=== PATIENT | female | born 1935 | race Caucasian/White ===

== ENCOUNTER 2020-05-14 09:32 | Inpatient (IN) | payer MEDICARE ==
[~2020-05-14] VITALS: Ht 165.1 cm; Wt 92.2 kg
--- NOTE | 2020-05-14 09:45 | PHYS DOC ---
Past Medical History Past Medical History: COPD Smoking Status: Current Every Day Smoker General Adult EDM: Chief Complaint: CHEST PAIN HPI: HPI: Patient is a 85 year old female who presents with a 5-day history of pleuritic left-sided thoracic pain radiating to her chest. Pain is worse with deep breaths. Pain is moderate and severity at rest but severe with deep breaths. Patient has had chronic cough that is been worse over the last 5 days. Patient had a cyst removed on her back on Tuesday and symptoms began around that time. She denies any fever or COVID-19 exposures Review of Systems: Review of Systems: Constitutional: Denies fever or chills. [] Eyes: Denies change in visual acuity. [] HENT: Denies nasal congestion or sore throat. [] Respiratory: Complains of chronic cough and also has shortness of breath Cardiovascular: Complains of chest pain but no edema GI: Denies abdominal pain, nausea, vomiting, bloody stools or diarrhea. [] : Denies dysuria. [] Musculoskeletal: Complains of thoracic back pain Integument: Denies rash. [] Neurologic: Denies headache, focal weakness or sensory changes. [] Endocrine: Denies polyuria or polydipsia. [] Lymphatic: Denies swollen glands. [] Psychiatric: Denies depression or anxiety. [] Heart Score: HEART Score for Chest Pain: HEART Score for Chest Pain Response (Comments) Value History Slighlty/Non-Suspicious 0 ECG Nonspecific Repolarizatio 1 Age > 65 2 Risk Factors 1 or 2 Risk Factors 1 Total 4 Risk Factors: Risk Factors: DM, Current or recent (<one month) smoker, HTN, HLP, family history of CAD, obesity. Risk Scores: Score 0 - 3: 2.5% MACE over next 6 weeks - Discharge Home Score 4 - 6: 20.3% MACE over next 6 weeks - Admit for Clinical Observation Score 7 - 10: 72.7% MACE over next 6 weeks - Early Invasive Strategies Physical Exam: PE: Constitutional: Well developed, well nourished, no acute distress, non-toxic appearance. [] HENT: Normocephalic, atraumatic, bilateral external ears normal, no trismus, nose normal. [] Eyes: PERRLA, EOMI, conjunctiva normal, no discharge. [] Neck: Normal range of motion, no tenderness, supple, no stridor. [] Cardiovascular:Heart rate regular rhythm, peripheral pulse intact, cap refill brisk Lungs & Thorax: Diminished breath sounds bilaterally crackles bilaterally Abdomen: , soft, no tenderness, no masses, no pulsatile masses. [] Skin: Warm, dry, no erythema, no rash. [] Back: No tenderness, no CVA tenderness. [] Extremities: No tenderness, no cyanosis, no clubbing, ROM intact, no edema. [] Neurologic: Alert and oriented X 3, normal motor function, normal sensory function, no focal deficits noted. [] Psychologic: Affect normal, judgement normal, mood normal. [] Current Patient Data: Labs: Laboratory Tests Test 05/14/20 09:55 05/14/20 10:34 05/14/20 12:10 White Blood Count 8.1 x10^3/uL Red Blood Count 4.89 x10^6/uL Hemoglobin 15.2 g/dL Hematocrit 44.0 % Mean Corpuscular Volume 90 fL Mean Corpuscular Hemoglobin 31 pg Mean Corpuscular Hemoglobin Concent 34 g/dL Red Cell Distribution Width 14.6 % Platelet Count 224 x10^3/uL Neutrophils (%) (Auto) 78 % Lymphocytes (%) (Auto) 12 % Monocytes (%) (Auto) 7 % Eosinophils (%) (Auto) 3 % Basophils (%) (Auto) 1 % Neutrophils # (Auto) 6.3 x10^3/uL Lymphocytes # (Auto) 0.9 x10^3/uL Monocytes # (Auto) 0.6 x10^3/uL Eosinophils # (Auto) 0.2 x10^3/uL Basophils # (Auto) 0.0 x10^3/uL Prothrombin Time 13.1 SEC Prothromb Time International Ratio 1.0 D-Dimer (Karon) 1.94 ug/mlFEU Sodium Level 138 mmol/L Potassium Level 3.7 mmol/L Chloride Level 101 mmol/L Carbon Dioxide Level 31 mmol/L Anion Gap 6 Blood Urea Nitrogen 17 mg/dL Creatinine 0.8 mg/dL Estimated GFR (Cockcroft-Gault) 67.8 BUN/Creatinine Ratio 21 Glucose Level 104 mg/dL Calcium Level 9.1 mg/dL Magnesium Level 1.9 mg/dL Total Bilirubin 0.5 mg/dL Aspartate Amino Transf (AST/SGOT) 20 U/L Alanine Aminotransferase (ALT/SGPT) 22 U/L Alkaline Phosphatase 70 U/L Troponin I Quantitative < 0.017 ng/mL < 0.017 ng/mL CJ-Kha-N-Type Natriuretic Peptide 363 pg/mL Total Protein 6.8 g/dL Albumin 3.2 g/dL Albumin/Globulin Ratio 0.9 Lipase 62 U/L Current Medications Medications (Trade) Dose Ordered Sig/Violeta Route PRN Reason Start Time Stop Time Status Last Admin Dose Admin Ceftriaxone Sodium (Rocephin) 1 gm 1X ONCE IVP 05/14/20 11:15 05/14/20 11:19 DC 05/14/20 11:27 Azithromycin 250 ml @ 250 mls/hr 1X ONCE IV 05/14/20 11:30 05/14/20 12:29 DC 05/14/20 11:28 Ondansetron HCl (Zofran) 4 mg PRN Q8HRS PRN IV NAUSEA/VOMITING 05/14/20 11:30 05/15/20 11:29 Vital Signs: Vital Signs Date Time Temp Pulse Resp B/P (MAP) Pulse Ox O2 Delivery O2 Flow Rate FiO2 05/14/20 11:41 74 150/79 (102) 93 Nasal Cannula 2.0 05/14/20 11:11 78 142/77 (98) 95 Nasal Cannula 2.0 05/14/20 10:11 72 154/73 (100) 94 Nasal Cannula 2.0 05/14/20 09:40 98.5 71 20 147/86 (106) 92 Room Air 98.5 EKG: EKG: [] EKG interpreted by me normal sinus rhythm with a rate of 71 left axis deviation,, nonspecific ST changes Radiology/Procedures: Radiology/Procedures: [][facility] [address] [place] [address] IMAGING REPORT Signed PATIENT: WILLIAN NAYLORCOUNT: [id number] : 1935 LOCATION: ER AGE: 85 SEX: F EXAM STATUS: PRE ER ORD. PHYSICIAN: SYLVESTER YATES MD REASON: chest pain PROCEDURE: PORTABLE CHEST 1V PORTABLE CHEST 1V Clinical indications: Chest pain. COMPARISON: December 03, 2014. FINDINGS: There is infiltrate or atelectasis within both lung bases more so on the left side. The medial aspect of the left hemidiaphragm is not well-visualized today. No pleural effusion or pulmonary edema or pneumothorax is seen. The heart size is mildly prominent but stable. Mediastinum and pulmonary vasculature and both mary are unchanged. IMPRESSION: Bibasilar lung infiltrates or atelectasis more prominent on the left side. Electronically signed by: Justa Ojeda MD (05/14/2020 10:47 AM) [id number] DICTATED and SIGNED BY: JUSTA OJEDA MD DATE: 05/14/20 1047 Course & Med Decision Making: Course & Med Decision Making Pertinent Labs and Imaging studies reviewed. (See chart for details) [] 85-year-old female presents with left-sided chest pain. The patient has pneumonia on x-ray and will be treated for community-acquired pneumonia. Patient's oxygen level is in the upper 80s on arrival and to baseline is about 93%. Patient improves with couple liters of oxygen via nasal cannula in the ER. Patient will be sent swabbed for coronavirus as well. Patient's d-dimer came back after the disposition was made although I think pulmonary embolism is less likely and most likely her symptoms are due to pneumonia. Discussed the case with Dr. west who will admit the patient. Smita Disclaimer: Smita Disclaimer: This electronic medical record was generated, in whole or in part, using a voice recognition dictation system. Departure Departure Impression: Primary Impression: Pneumonia Additional Impression: Left-sided chest pain Disposition: ADMITTED INPATIENT Admitting Physician: Vanessa West Condition: STABLE Referrals: RODOLFO BUCKNER (PCP) Justicifation of Admission Dx: Justifications for Admission: Justification of Admission Dx: Yes Comminuty Aquired Pneumonia: Hypoxemia SYLVESTER YATES MD May 14, 2020 09:45
[2020-05-14 10:13] LABS: BASO % 1 % (0-3); EOS # 0.2 x10^3/uL (0.0-0.7); EOS % 3 % (0-3); HEMOGLOBIN 15.2 g/dL (12.0-15.5); LYMPH # 0.9 x10^3/uL (1.0-4.8); LYMPH % 12 % (24-48); MEAN CORPUSCULAR HEMOGLOBIN 31 pg (25-35); MEAN CORPUSCULAR HGB CONC 34 g/dL (31-37); MEAN CORPUSCULAR VOLUME 90 fL (79-100); MONO # 0.6 x10^3/uL (0.0-1.1); MONO % 7 % (0-9); NEUT # 6.3 x10^3/uL (1.8-7.7); NEUT % 78 % (31-73); PLATELET COUNT 224 x10^3/uL (140-400); RED BLOOD COUNT 4.89 x10^6/uL (3.50-5.40); RED CELL DISTRIBUTION WIDTH 14.6 % (11.5-14.5); WHITE BLOOD COUNT 8.1 x10^3/uL (4.0-11.0)
--- NOTE | 2020-05-14 10:50 | RAD ---
PORTABLE CHEST 1V Clinical indications: Chest pain. COMPARISON: December 03, 2014. FINDINGS: There is infiltrate or atelectasis within both lung bases more so on the left side. The medial aspect of the left hemidiaphragm is not well-visualized today. No pleural effusion or pulmonary edema or pneumothorax is seen. The heart size is mildly prominent but stable. Mediastinum and pulmonary vasculature and both mary are unchanged. IMPRESSION: Bibasilar lung infiltrates or atelectasis more prominent on the left side. Electronically signed by: Gino Ojeda MD (05/14/2020 10:47 AM) [id number]
[2020-05-14 10:56] LABS: CALCIUM 9.1 mg/dL (8.5-10.1); CREATININE 0.8 mg/dL (0.6-1.0); GFR 67.8; POTASSIUM 3.7 mmol/L (3.5-5.1)
[2020-05-14 11:02] LABS: ALBUMIN 3.2 g/dL (3.4-5.0); ALBUMIN/GLOBULIN RATIO 0.9 (1.0-1.7); MAGNESIUM 1.9 mg/dL (1.8-2.4); TOTAL BILIRUBIN 0.5 mg/dL (0.2-1.0); TOTAL PROTEIN 6.8 g/dL (6.4-8.2)
[2020-05-14 11:12] LABS: PROTHROMBIN TIME PATIENT 13.1 SEC (11.7-14.0)
[2020-05-14] MEDS ORDERED: cefTRIAXone IV Push 1 GM VIAL. IVP ONE (11:15)
[2020-05-14 11:27] LABS: D-DIMER 1.94 ug/mlFEU (0.00-0.50)
[2020-05-14] MEDS ORDERED: ONDANSETRON PF 4 MG/2 ML VIAL. IV PRN (11:30)
[2020-05-14] MEDS ORDERED: AZITHRMYCN 500MG IVPB FOR OMNI 250 ML IV ONE (11:30)
[2020-05-14 12:30] VITALS: BP 142/75
[2020-05-14] MEDS ORDERED: CALC600T6 PO (13:48)
[2020-05-14] MEDS ORDERED: BACL10TA PO (13:48)
[2020-05-14] MEDS ORDERED: MULT-766 PO (13:48)
[2020-05-14] MEDS ORDERED: TRIA1CAP3 PO (13:48)
[2020-05-14] MEDS ORDERED: LOSA-73 PO (13:48)
[2020-05-14] MEDS ORDERED: DILT300C24 PO (13:48)
[2020-05-14] MEDS ORDERED: GABA400C7 PO (13:48)
[2020-05-14 14:44] VITALS: BP 137/65
[2020-05-14] MEDS: IPRATRPIUM/ALBUTEROL 0.5/2.5MG 3 ML NEBU. NEB SCH ×2 (16:00→18:32)
--- NOTE | 2020-05-14 16:11 | NUR ---
SW following. Spoke with RN and reviewed chart. Pt from home, cardiac diet. Pt currently on 2l 02 but does not have home 02. Pt tested negative for COVID at [place] prior to this admission but is being retested. Pt COVID pending at this time. Pt started on IV Zithromax. Pt had a fever yesterday and is being tested for CDIFF. MARIZOL following.
[2020-05-14 19:00] VITALS: BP 141/71
[2020-05-14] MEDS: GABAPENTIN 400 MG CAPSULE. PO SCH (20:24)
[2020-05-14] MEDS: IBUPROFEN 200 MG TABLET. PO PRN (20:57)
[2020-05-14 22:44] VITALS: BP 167/73
--- NOTE | 2020-05-15 02:51 | EKG ---
[facility] [address] [place] [address] Test Date: 2020-05-14 Test Time: 09:40:57 Pat Name: WILLIAN NAYLOR Department: Room: Gender: F Die Maker Trim: : 1935 Requested By: SYLVESTER YATES Order Number: [id number] Reading MD: Measurements Intervals [place] Rate: 71 P: 41 VA: 176 QRS: -7 QRSD: 78 T: 42 QT: 364 QTc: 396 Interpretive Statements SINUS RHYTHM LEFTWARD AXIS OTHERWISE NORMAL ECG RI6.02 No previous ECG available for comparison
[2020-05-15 03:00] VITALS: BP 146/72
--- NOTE | 2020-05-15 06:09 | NUR ---
Patient refuses to take Ibuprofen for pain management.
[2020-05-15 07:30] VITALS: BP 191/94
[2020-05-15] MEDS ORDERED: predniSONE 10 MG TABLET PO ONE (08:00)
--- NOTE | 2020-05-15 08:32 | PDOC ---
Provider Note Date of Service: DATE: 05/15/20 TIME: 08:29 Provider Note [id number] Justifications for Admission Other Justification SUMAN HOOVER MD May 15, 2020 08:32
[2020-05-15] MEDS ORDERED: FLUT1DIS3 IH (08:40)
[2020-05-15] MEDS ORDERED: DOXY25TA49 PO (08:40)
[2020-05-15] MEDS ORDERED: CHOL500050 PO (08:40)
[2020-05-15] MEDS ORDERED: CALC1TAB75 PO (08:40)
[2020-05-15] MEDS ORDERED: ZINC50TA10 PO (08:40)
[2020-05-15] MEDS ORDERED: SOLI5TAB2 PO (08:40)
--- NOTE | 2020-05-15 08:49 | HP ---
ADMIT DATE: 05/15/2020 CHIEF COMPLAINT: Left-sided pleuritic chest pain and cough. HISTORY OF PRESENT ILLNESS: An 85-year-old white female with history of some tobacco use and hypertension and has had 2-3 days of pleuritic left-sided chest pain, sputum production and general malaise. Chest x-ray showed early left lower lobe infiltrates present. Labs were normal and COVID is pending. She has been given IV Rocephin and Zithromax at this point and feels about the same with no new symptoms or hemoptysis. D-dimer was negative in the ER. PAST HISTORY: MEDICATIONS: Listed per the chart. ALLERGIES: No allergies are noted. IMMUNIZATION STATUS: Unknown at this time. SOCIAL HISTORY: Quit smoking some years ago. , nondrinker. FAMILY HISTORY: Unremarkable. REVIEW OF SYSTEMS: Unremarkable. OBJECTIVE: ENT: All within normal limits. NECK: No masses, nodes or bruits. LUNGS: Crackles in the left lung base and right side sounds clear. No wheezing is noted. CARDIOVASCULAR: Regular rate. No tachycardia or murmur. ABDOMEN: Soft, benign and nontender. EXTREMITIES: Good pedal and radial pulses. No joint or skin lesions. NEUROLOGIC: Physiologic and nonfocal. ASSESSMENT: Community-acquired left lower lobe pneumonia. COVID seems unlikely, but test is pending. Superimposed chronic obstructive pulmonary disease and hypertension. PLAN: Continue current meds. COVID test is pending. No steroids for now. SUMAN HOOVER MD DR: ANABELA/sophia JOB#: [id number] / [id number]
[2020-05-15] MEDS ORDERED: CONTRAST GIVEN. MC PRN (09:00)
[2020-05-15] MEDS ORDERED: IOHEXOL 350 MG/ML 100 ML VIAL. IV ONE (09:00)
[2020-05-15] MEDS: IBUPROFEN 200 MG TABLET. PO PRN (10:06)
[2020-05-15] MEDS: LIDOCAINE (700MG/PATCH) PATCH. TD SCH (10:07)
[2020-05-15] MEDS ORDERED: AZITHROMYCIN 500 MG in IV NORMAL SALINE 250ML 250 ML IV SCH (11:00)
[2020-05-15 11:32] VITALS: BP 176/83
[2020-05-15] MEDS ORDERED: cefTRIAXone IV Push 1 GM VIAL. IVP SCH (12:00)
[2020-05-15 15:00] VITALS: BP 177/108
--- NOTE | 2020-05-15 16:46 | NUR ---
SW following. Spoke with RN and reviewed chart. Pt from home and plans to return at discharge. Pt on 1l 02 down from 2l. Pt remains COVID pending. Pt remains on IV abx. MARIZOL to continue following as needed. Addendum: 05/16/20 at 0937 by JENNY FONTANA Patient transferred to . VENANCIO Ocampo to follow.
--- NOTE | 2020-05-15 17:09 | RAD ---
Examination: CT ANGIOGRAPHY CHEST History: L pleuritic pain, high d dimer / Spl. Instructions: INJ 100ML OMNI 350 - RN GETTING NEW IV, PUI / History: Comparison/Correlation: None Findings: Axial images of the chest were obtained following IV contrast according to pulmonary arteriography protocol. Maximum intensity projection images provided. Sagittal and coronal reformatted images provided. Ascending thoracic aortic ectasia with diameter of up to 4.1 cm is present. Descending thoracic aortic diameter (2.8 cm noted. Calcific plaque is noted involving the aortic arch and distal thoracic aorta. Marked calcific involvement of the coronary arteries is evident diffusely. Minimal right costophrenic sulcus atelectasis is present. Small left pleural effusion with atelectasis in the posterior basal aspect is present. Left fifth, sixth, seventh lateral rib fractures are present. Displacement of the fractures by up to entire shaft width is noted. No appreciable callus formation is seen. No pneumothorax. No enlarged thoracic lymph nodes. Borderline precarinal lymph node is present. Small hiatal hernia is present. Pulmonary arterial vasculature is normal with no thromboembolic disease although evaluation is limited in regions of atelectasis. Reflux of contrast into the hepatic veins is noted and may represent right heart insufficiency. 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 Impression: Left fifth, sixth, seventh lateral displaced rib fractures are present. No appreciable calcification. Correlate with history of trauma. Bilateral pleural effusions greater on the left. Bibasilar atelectasis greater on the left. Marked coronary arterial calcification. No PE. Ascending aortic ectasia. PQRS Compliance Statement: One or more of the following individualized dose reduction techniques were utilized for this examination: 1. Automated exposure control 2. Adjustment of the mA and/or kV according to patient size 3. Use of iterative reconstruction technique Electronically signed by: Moreno Murphy MD (05/15/2020 5:06 PM) [id number]
[2020-05-15] MEDS ORDERED: hydrALAZINE 20 MG/ML VIAL. IVP ONE (17:45)
[2020-05-15] MEDS: TRIAMTERENE/HCTZ 37.5/25MG TABLET. PO SCH (18:22)
[2020-05-15] MEDS: LOSARTAN POTASSIUM 50 MG TABLET. PO SCH (18:22)
[2020-05-15] MEDS: IPRATRPIUM/ALBUTEROL 0.5/2.5MG 3 ML NEBU. NEB SCH (19:25)
[2020-05-15 19:35] VITALS: BP 139/70
[2020-05-15] MEDS: LACTOBACILLUS RHAMNOSUS GG 1 CAPSULE. PO SCH (20:51)
[2020-05-15] MEDS: PATCH REMOVAL. MC SCH (20:52)
[2020-05-15] MEDS: GABAPENTIN 400 MG CAPSULE. PO SCH (20:52)
[2020-05-15 23:18] VITALS: BP 142/72
[2020-05-16 03:59] VITALS: BP 182/86
[2020-05-16] MEDS: IPRATRPIUM/ALBUTEROL 0.5/2.5MG 3 ML NEBU. NEB SCH ×4 (06:28→20:02)
[2020-05-16 07:20] VITALS: BP 158/75
[2020-05-16] MEDS: LIDOCAINE (700MG/PATCH) PATCH. TD SCH (08:46)
[2020-05-16] MEDS: LACTOBACILLUS RHAMNOSUS GG 1 CAPSULE. PO SCH ×2 (08:46→21:38)
[2020-05-16] MEDS: TRIAMTERENE/HCTZ 37.5/25MG TABLET. PO SCH (08:46)
[2020-05-16] MEDS: LOSARTAN POTASSIUM 50 MG TABLET. PO SCH (08:47)
--- NOTE | 2020-05-16 09:07 | PDOC ---
Provider Note Date of Service: DATE: 05/16/20 TIME: 08:58 Provider Note no temp, pain same- ct no PE but 3 rib fx on L side correlating w/ pain-- will need rehab, Justifications for Admission Other Justification SUMAN HOOVER MD May 16, 2020 09:07
[2020-05-16 11:00] VITALS: BP 164/72
--- NOTE | 2020-05-16 13:16 | NUR ---
SS following up with discharge planning. SS reviewed pt chart and discussed with pt RN. Pt is currently on room air. PT recommended home with home healthcare. SS met with pt and discussed home healthcare and home health options. Pt agreeable to [facility], ; fax [phone]. SS phoned and faxed clinical to [facility]. Possible discharge to home this weekend. SS will continue to follow for discharge planning.
[2020-05-16 15:00] VITALS: BP 153/66
[2020-05-16] MEDS: NAPROXEN 250 MG TABLET PO PRN ×2 (18:30→19:30)
[2020-05-16 19:57] VITALS: BP 144/77
[2020-05-16] MEDS: PATCH REMOVAL. MC SCH (21:00)
[2020-05-16] MEDS: CEFDINIR 300 MG CAPSULE PO SCH (21:38)
[2020-05-16] MEDS: GABAPENTIN 400 MG CAPSULE. PO SCH (21:38)
[2020-05-16 23:31] VITALS: BP 97/61
[2020-05-17 03:40] VITALS: BP 135/71
[2020-05-17] MEDS: NAPROXEN 250 MG TABLET PO PRN (05:22)
[2020-05-17 07:00] VITALS: BP 175/75
[2020-05-17] MEDS: IPRATRPIUM/ALBUTEROL 0.5/2.5MG 3 ML NEBU. NEB SCH (08:01)
[2020-05-17] MEDS: LIDOCAINE (700MG/PATCH) PATCH. TD SCH (09:00)
[2020-05-17] MEDS: CEFDINIR 300 MG CAPSULE PO SCH (09:00)
[2020-05-17] MEDS: LACTOBACILLUS RHAMNOSUS GG 1 CAPSULE. PO SCH (09:00)
[2020-05-17] MEDS: LOSARTAN POTASSIUM 50 MG TABLET. PO SCH (09:00)
[2020-05-17] MEDS: TRIAMTERENE/HCTZ 37.5/25MG TABLET. PO SCH (09:00)
[2020-05-17 10:48] VITALS: BP 143/68
[2020-05-17] MEDS ORDERED: LIDO700A21 TD (10:58)
[2020-05-17] MEDS ORDERED: CEFD300C PO (10:58)
--- NOTE | 2020-05-17 11:01 | SNU/HH DC ---
DISCHARGE WITH HOME HEALTH DISCHARGE INFORMATION: Discharge Date: May 17, 2020 Final Diagnosis: Problems Medical Problems: (1) Left-sided chest pain Status: Acute (2) Pneumonia Status: Acute Condition on Discharge: Stable CODE STATUS: Code Status: Full HOME HEALTH: Face to Face: I certify this patient is under my care and that I, or a nurse practitioner or physician's environmental engineering assistant working with me, had a face to face encounter that meets the physician face to face encounter requirements with this patient on 05/17/20. Medical Complications: COPD, Pneumonia Fdc For: Assess Cardiopulm Status, Assess/Skilled Observatio, Pain Management RN For Eval/Treatment: Yes Physical Therapy For: Evalulation/Treatment Occupational Therapy For: Evaluation/Treatment Pt Meets Homebound Status: Unsteady balance w/ amb,, Extreme weakness w/ amb. POST DISCHARGE ORDERS: Activity Instructions for Disc: Activity as tolerated Weight Bearing Status after Di: Full weight bearing DIET AFTER DISCHARGE: Regular CHECKS AFTER DISCHARGE: Checks after discharge: Check blood press - daily CERTIFICATION STATEMENT: Certification Statement: Certification Statement: Based on the above finding, I certify that this patient is confined to the home and needs intermittent custodial care, physical therapy and/or speech therapy, or continues to need occupational therapy.~ This patient is under my care, and I have initiated the establishment of the plan of care.~ This patient will be followed by myself or a community physician who will periodically review the plan of care. Home Meds Active Scripts Lidocaine (Lidocaine PATCH ) 1 Each Adh..patch, 1 PATCH TD DAILY for chest wall pain/ rib fractures for 30 Days, #30 PATCH Prov:BIJAN JOHNSTON MD 05/17/20 Cefdinir (CEFDINIR) 300 Mg Capsule, 300 MG PO BID for pneumonia for 10 Days, #20 CAP Prov:BIJAN JOHNSTON MD 05/17/20 Reported Medications Doxylamine Succinate (Unisom) 25 Mg Tablet, 25 MG PO DAILY for sleeping aide, TAB 05/15/20 Calcium Carbonate/Vitamin D3 (CALCIUM 600 + VIT D 200 TABLET) 1 Each Tablet, 1 EACH PO DAILY for suppl, TAB 05/15/20 Cholecalciferol (Vitamin D3) (Vitamin D3) 1,250 Mcg Capsule, 1000 MCG PO DAILY for suppl, CAP 05/15/20 Zinc Gluconate (ZINC) 50 Mg Tablet, 100 MG PO DAILY for suppl, TAB 05/15/20 Fluticasone/Salmeterol (ADVAIR 250-50 DISKUS) 1 Each Disk.w.dev, 1 PUFF IH BID for SOB, #3 INHALER 3 Refills 05/15/20 Solifenacin Succinate (VESICARE) 5 Mg Tablet, 1 TAB PO DAILY for bladder fu nction for 30 Days, #30 TAB 0 Refills 05/15/20 Multivitamin (Multivitamin) 1 Each Tablet, 1 EACH PO DAILY for , TAB 05/14/20 Gabapentin (Gabapentin) 400 Mg Capsule, 1 CAP PO QHS for 05/14/20 Baclofen (BACLOFEN) 10 Mg Tablet, 1 TAB PO BID for , #90 TAB 2 Refills 05/14/20 Triamterene/Hydrochlorothiazid (TRIAMTERENE-HCTZ 37.5-25 MG CP) 1 Each Capsule, 1 CAP PO DAILY for , #30 CAP 5 Refills 05/14/20 Losartan Potassium (LOSARTAN POTASSIUM) 50 Mg Tablet, 50 MG PO DAILY for HYPERTENSION, TAB 05/14/20 Diltiazem HCl (Diltiazem 24Hr ER (Cd)) 300 Mg Cap.er.24h, 1 CAP PO DAILY for for 30 Days, #30 CAP 0 Refills 05/14/20 Discontinued Reported Medications Calcium Carbonate (CALCIUM) 600 Mg Tablet, 600 MG PO DAILY for , TAB 05/14/20 BIJAN JOHNSTON MD May 17, 2020 11:01
--- NOTE | 2020-05-17 11:45 | NUR ---
Discharge Note: WILLIAN NAYLOR [address] Discharge instructions and discharge home medications reviewed with Patient and a copy given. All questions have been answered and understanding verbalized. The following instructions and handouts were given: f/u with Dr. Delgadillo within one week. Discontinued lines and drains: Peripheral IV intact. Patient discharged to Home w/services with Family Member via Wheelchair. [facility] fax number [phone]
--- NOTE | 2020-05-17 13:50 | DS ---
DATE OF DISCHARGE: 05/17/2020 PRIMARY DIAGNOSIS: Left lower lobe pneumonia. ADDITIONAL DIAGNOSES: Left fifth, sixth, and seventh rib fractures with lateral displacement of uncertain etiology, bilateral left greater than right pleural effusions, hypertension, pleuritic left-sided chest pain, and COVID negative testing during stay. CHIEF COMPLAINT AND HISTORY OF PRESENT ILLNESS: This 85-year-old white female, patient of Hector Delgadillo, presented to the Emergency Room with 2-3 days of pleuritic left-sided chest pain, sputum production, and general malaise. Initial chest x-ray showed left lower lobe infiltrate and the patient was admitted. CT scanning showed as mentioned above. In addition, there was no significant history for ____. She was improved and therapy felt she could be dismissed home with home health and using a walker, which she states she has at home. She was transitioned to oral Omnicef as an antibiotic prior to discharge, had good O2 sats on room air and lidocaine patch that was helping. There was pain in her rib area and was felt ready for dismissal on the day of discharge and this was accomplished. DISPOSITION: The patient is discharged to home with home health. DIET: Regular diet. ACTIVITY: As tolerated. FOLLOWUP: Office Dr. Delgadillo in 1 week. DISCHARGE MEDICATIONS: Listed on the med rec and have been addressed. Changes in medications at the time of discharge include lidocaine patch daily for the rib pain. She will be taking Omnicef 300 mg b.i.d. for the next 10 days. BIJAN JOHNSTON MD DR: CATA/sophia JOB#: [id number] / [id number] Hector Walker
== END 2020-05-17 11:45 | disposition home health service (06) | DRG 178 ==
LOC: ER 09:32 → 6 SOUTH 11:31 → 2 SOUTH 05-16 07:29
PROVIDERS: ADMIT Family Medicine; ATTEND Family Medicine
DX: J15.6 Pneumonia due to other Gram-negative bacteria (principal); S22.42XA Multiple fractures of ribs, left side, initial encounter for closed fracture; J44.0 Chronic obstructive pulmonary disease with (acute) lower respiratory infection; E44.1 Mild protein-calorie malnutrition; Z20.828 Contact with and (suspected) exposure to other viral communicable diseases; I10 Essential (primary) hypertension; Z87.891 Personal history of nicotine dependence; Y93.89 Activity, other specified; Y92.89 Other specified places as the place of occurrence of the external cause; Y99.8 Other external cause status
CPT/HCPCS: 36415; 71045; 71275; 80053; 83690; 83735; 83880; 84484; 85025; 85379; 85610; 87040; 93005; 94640; 94760; 96365; 96375; 99285; J0360; J0456; J0696; J7050; J7512; G0378; J7030; U0003-CS

== ENCOUNTER → 2020-05-29 | Outpatient (CLI) | payer MEDICARE ==
[2020-05-17 10:48] VITALS: BP 143/68
[~2020-05-29] MED LIST: BACL10TA PO; CALC1TAB75 PO; CALC600T6 PO; CEFD300C PO; CHOL500050 PO; DILT300C24 PO; DOXY25TA49 PO; FLUT1DIS3 IH; GABA400C7 PO; LIDO700A21 TD; LOSA-73 PO; MULT-766 PO; SOLI5TAB2 PO; TRIA1CAP3 PO; ZINC50TA10 PO
--- NOTE | 2020-05-29 12:23 | KCIC ---
CHEST PA LATERAL, RIBS LEFT 05/29/2020 12:00 AM INDICATION: ] Fracture involving the left side. COMPARISON: 05/14/2020 TECHNIQUE: Frontal and lateral views of the chest are provided. FINDINGS: The cardiomediastinal silhouette is within normal limits. No pulmonary vascular congestion or pneumothorax. Calcified atheromatous plaque. Thoracic aorta. Coarse interstitial changes are identified at the lung bases which may represent subsegmental atelectasis versus developing infiltrate. Trace left pleural effusion. Mild to moderately displaced left posterior lateral fifth, sixth and seventh rib fractures are noted. No definite pneumothorax. IMPRESSION: 1. No acutely displaced left lateral posterior fifth, sixth and seventh rib fractures. 2. Trace left pleural effusion with adjacent contusive change or atelectasis and/or infiltrate. Electronically signed by: Lakeshia Fernandez MD (05/29/2020 12:20 PM) JUDITH
== END | disposition home or self-care (01) ==
LOC: KCIC 11:08
PROVIDERS: ATTEND Family Medicine
DX: S22.42XA Multiple fractures of ribs, left side, initial encounter for closed fracture (principal); I70.0 Atherosclerosis of aorta; J98.11 Atelectasis; X58.XXXA Exposure to other specified factors, initial encounter; Y93.89 Activity, other specified; Y92.89 Other specified places as the place of occurrence of the external cause; Y99.8 Other external cause status
CPT/HCPCS: 71046; 71100

== ENCOUNTER → 2020-06-11 | Outpatient (CLI) | payer MEDICARE ==
[2020-05-17 10:48] VITALS: BP 143/68
--- NOTE | 2020-06-11 17:28 | KCIC ---
CHEST PA LATERAL, RIBS BILAT 3V History: Reason: COPD, bilateral rib pain, Lt rib fractures, pain under Rt breast. / Spl. Instructions: / History: Technique: PA and lateral view the chest and additional views of the bilateral ribs. Comparison: May 29, 2020 Findings: Bilateral interstitial prominence, similar compared to prior. No new consolidation. No pleural effusion. Tortuous thoracic aorta. No pneumothorax. Acute left fourth rib fracture, new compared to prior. Left fifth, sixth and seventh displaced rib fractures, unchanged compared to prior. No displaced right rib fractures identified. Glenohumeral DJD. Impression: 1. New acute left posterior fourth rib fracture. 2. Unchanged left fifth through seventh rib fractures. 3. Bilateral interstitial prominence, unchanged compared to prior. No new consolidation. Electronically signed by: Balaji Burns DO (06/11/2020 5:25 PM) [id number]
== END ==
LOC: KCIC 10:34
PROVIDERS: ATTEND Family Medicine
DX: S22.49XA Multiple fractures of ribs, unspecified side, initial encounter for closed fracture (principal); J44.1 Chronic obstructive pulmonary disease with (acute) exacerbation; X58.XXXA Exposure to other specified factors, initial encounter; Y93.89 Activity, other specified; Y92.89 Other specified places as the place of occurrence of the external cause; Y99.8 Other external cause status
CPT/HCPCS: 71046; 71110

== ENCOUNTER → 2021-01-05 | Outpatient (CLI) | payer MEDICARE ==
[~2021-01-05] MED LIST changes: +CALC-627 PO; -CALC1TAB75 PO; -CALC600T6 PO; +CALC600T60 PO
--- NOTE | 2021-01-06 07:48 | KCIC ---
INDICATION: Screening for osteopenia/osteoporosis. Postmenopausal evaluation. COMPARISON: 08/22/2015 TECHNIQUE: Bone densitometry was performed through the lumbar spine and proximal femur. IMPRESSION: Lumbar Spine: BMD: 1.17 T-Score: 1.1 Range: Normal. Increased by 19 percent from prior. Proximal Femur: BMD: 0.9 T-Score: -0.3 Range: Normal. Decreased by 2 percent from prior. World Health Organization Criteria for Bone Density: T-Score: > -1.0: Normal Range < -1.0 to -2.5: Osteopenic Range < -2.5: Osteoporotic Range Electronically signed by: Lamont Delgadillo MD (01/06/2021 7:46 AM) [id number]
== END ==
LOC: KCIC DEXA 11:24
PROVIDERS: ATTEND Family Medicine
DX: Z78.0 Asymptomatic menopausal state (principal)
CPT/HCPCS: 77080

== ENCOUNTER 2021-01-19 10:18 | Emergency (ER) | payer MEDICARE ==
[~2021-01-19] VITALS: Ht 165.1 cm; Wt 90.9 kg
[~2021-01-19 10:18] MED LIST changes: +EPINEPHrine SYRINGE 1 MG/10 ML SYRINGE ONE; +SODIUM BICARB ADULT 8.4% 50 MEQ/50 ML DISP.SYRIN. ONE
[2021-01-19 11:02] VITALS: BP 114/87
[2021-01-19] MEDS ORDERED: IV NORMAL SALINE 1000ML BAG 1,000 ML IV ONE (11:30)
--- NOTE | 2021-01-19 11:35 | RAD ---
EXAM: Chest, single view. HISTORY: Trauma. COMPARISON: 06/11/2020 FINDINGS: A frontal view of the chest is obtained. There is stable opacification of the lateral left thorax due to multiple chronic rib fractures and associated pleural thickening or pleural parenchymal scarring. No convincing acute fracture is seen. The heart is normal in size. There is an endotrachea l tube within the mid to distal trachea. There is linear scarring within the right midlung. IMPRESSION: 1. Multiple chronic appearing left rib fractures with associated pleural thickening or pleural parenc hymal scarring. 2. Endotracheal tube in expected position. Electronically signed by: Afia Farias MD (01/19/2021 11:33 AM) [id number]
--- NOTE | 2021-01-19 11:36 | RAD ---
EXAM: Pelvis, single view. HISTORY: Fall. Pain. COMPARISON: None. FINDINGS: A frontal view of the pelvis is obtained. A displaced fracture is seen. There is lumbar sco liosis and multilevel degenerative change throughout the visualized lumbar spine. There is a large am ount gas and stool within the colon. There is also a distended air-filled viscus within the upper abd omen which is partially excluded from the [id number] and likely the stomach. There is mild bilater al hip osteoarthritis. IMPRESSION: 1. No convincing acute osseous finding. 2. Large amount gas and stool within the colon and suspected distended air-filled stomach. Electronically signed by: Afia Farias MD (01/19/2021 11:34 AM) [id number]
[2021-01-19 11:38] LABS: BASO # 0.1 x10^3/uL (0.0-0.2); BASO % 1 % (0-3); EOS % 9 % (0-3); HEMATOCRIT 32.5 % (36.0-47.0); HEMOGLOBIN 10.4 g/dL (12.0-15.5); LYMPH # 5.4 x10^3/uL (1.0-4.8); LYMPH % 47 % (24-48); MEAN CORPUSCULAR HEMOGLOBIN 30 pg (25-35); MEAN CORPUSCULAR HGB CONC 32 g/dL (31-37); MEAN CORPUSCULAR VOLUME 93 fL (79-100); MONO # 0.6 x10^3/uL (0.0-1.1); MONO % 5 % (0-9); NEUT # 4.4 x10^3/uL (1.8-7.7); NEUT % 38 % (31-73); PLATELET COUNT 163 x10^3/uL (140-400); RED BLOOD COUNT 3.49 x10^6/uL (3.50-5.40); RED CELL DISTRIBUTION WIDTH 15.6 % (11.5-14.5); WHITE BLOOD COUNT 11.6 x10^3/uL (4.0-11.0)
[2021-01-19 11:44] LABS: CALCIUM 8.1 mg/dL (8.5-10.1); CREATININE 1.4 mg/dL (0.6-1.0); GFR 35.6; POTASSIUM 5.6 mmol/L (3.5-5.1)
[2021-01-19 11:50] LABS: ALBUMIN 2.5 g/dL (3.4-5.0); ALBUMIN/GLOBULIN RATIO 1.3 (1.0-1.7); MAGNESIUM 2.3 mg/dL (1.8-2.4); TOTAL BILIRUBIN 0.4 mg/dL (0.2-1.0); TOTAL PROTEIN 4.5 g/dL (6.4-8.2)
--- NOTE | 2021-01-19 12:18 | PHYS DOC ---
Past Medical History Past Medical History: COPD Additional Past Medical Histor: "pre diabetes" Past Surgical History: Other Additional Past Surgical Histo: breast biopsy, cyst removal from back Smoking Status: Unknown if ever smoked Alcohol Use: None General Adult EDM: Chief Complaint: TRAUMA ALERT HPI: HPI: Patient is a 85 year old female who was brought here by EMS from home due to altered mental status, found unresponsive in the toilet this morning by her daughter. Her daughter reported that patient was getting ready to go see her family doctor today at 10 AM. Patient lives upstair, her daughter was downstair and she heard a loud noise in the toilet. Her daughter ran into the toilet and found her unresponsive on the floor. Patient appeared to be very confused, did not remember what happened. EMS were called to take her here for evaluation. EMS reported that her GCS of 3 to 8. Blood sugar was 178. Patient has history of frequent fall, she broke her ribs on the left side before. Upon arrival to room, patient was very confused, combative, pulling off EKG LEADS. Patient said she was having neck pain, she said" who are you, what you guys doing to me" She was very agigated, will not lay still, she was pale, no able to obtain her oxygen saturation or blood pressure. Review of Systems: Review of Systems: Not able to obtain. Heart Score: C/O Chest Pain: N/A Risk Factors: Risk Factors: DM, Current or recent (<one month) smoker, HTN, HLP, family history of CAD, obesity. Risk Scores: Score 0 - 3: 2.5% MACE over next 6 weeks - Discharge Home Score 4 - 6: 20.3% MACE over next 6 weeks - Admit for Clinical Observation Score 7 - 10: 72.7% MACE over next 6 weeks - Early Invasive Strategies Current Medications: Current Medications Medications (Trade) Dose Ordered Sig/Violeta Start Time Stop Time Status Last Admin Dose Admin Lorazepam (Ativan Inj) 2 mg 1X ONCE 01/19/21 11:30 01/19/21 11:31 DC Sodium Chloride 1,000 ml @ 1,000 mls/hr 1X ONCE 01/19/21 11:30 01/19/21 12:29 01/19/21 11:04 1,000 MLS/HR Allergies: Allergies: Allergies Coded Allergies Type Severity Reaction Last Updated Verified No Known Drug Allergies 01/19/21 No Physical Exam: PE: Constitutional: Well developed, well nourished, in acute distress, toxic appearance, altered, confused, agitation. HENT: Normocephalic, atraumatic, bilateral external ears normal, oropharynx moist, no oral exudates, nose normal. tingled blood inside orapharyngeal area. Eyes: PERRLA, EOMI, conjunctiva normal, no discharge. [] Neck: Rigid C-collar was applied to neck in the ER, no midline c-spine vertebral tenderness to palpation, no stridor. [] Cardiovascular:Heart rate regular rhythm, no murmur [] Lungs & Thorax: Bilateral breath sounds clear to auscultation [] Abdomen: Bowel sounds normal, soft, no tenderness, no masses, no pulsatile masses. [] Skin:CYANOSIS, COLD AND CLAMMY. Back: No tenderness, no CVA tenderness. [] Extremities: NO DEFORMITY, no cyanosis, no clubbing, ROM intact, no edema. [] Neurologic: ALTERED, CONFUSED, MOVED ALL EXTREMITIES. Psychologic: APPEARED AGITATED AND COMBATIVE. Current Patient Data: Labs: Laboratory Tests Test 01/19/21 11:19 White Blood Count 11.6 x10^3/uL (4.0-11.0) H Red Blood Count 3.49 x10^6/uL (3.50-5.40) L Hemoglobin 10.4 g/dL (12.0-15.5) L Hematocrit 32.5 % (36.0-47.0) L Mean Corpuscular Volume 93 fL (79-100) Mean Corpuscular Hemoglobin 30 pg (25-35) Mean Corpuscular Hemoglobin Concent 32 g/dL (31-37) Red Cell Distribution Width 15.6 % (11.5-14.5) H Platelet Count 163 x10^3/uL (140-400) Neutrophils (%) (Auto) 38 % (31-73) Lymphocytes (%) (Auto) 47 % (24-48) Monocytes (%) (Auto) 5 % (0-9) Eosinophils (%) (Auto) 9 % (0-3) H Basophils (%) (Auto) 1 % (0-3) Neutrophils # (Auto) 4.4 x10^3/uL (1.8-7.7) Lymphocytes # (Auto) 5.4 x10^3/uL (1.0-4.8) H Monocytes # (Auto) 0.6 x10^3/uL (0.0-1.1) Eosinophils # (Auto) 1.0 x10^3/uL (0.0-0.7) H Basophils # (Auto) 0.1 x10^3/uL (0.0-0.2) Platelet Estimate Pending Sodium Level 142 mmol/L (136-145) Potassium Level 5.6 mmol/L (3.5-5.1) H Chloride Level 106 mmol/L (98-107) Carbon Dioxide Level 20 mmol/L (21-32) L Anion Gap 16 (6-14) H Blood Urea Nitrogen 26 mg/dL (7-20) H Creatinine 1.4 mg/dL (0.6-1.0) H Estimated GFR (Cockcroft-Gault) 35.6 BUN/Creatinine Ratio 19 (6-20) Glucose Level 165 mg/dL (70-99) H Calcium Level 8.1 mg/dL (8.5-10.1) L Magnesium Level 2.3 mg/dL (1.8-2.4) Total Bilirubin 0.4 mg/dL (0.2-1.0) Aspartate Amino Transferase (AST) 123 U/L (15-37) H Alanine Aminotransferase (ALT) 96 U/L (14-59) H Alkaline Phosphatase 66 U/L (46-116) Troponin I Quantitative 0.094 ng/mL (0.000-0.055) AV-Nkl-J-Type Natriuretic Peptide 682 pg/mL (0-449) H Total Protein 4.5 g/dL (6.4-8.2) L Albumin 2.5 g/dL (3.4-5.0) L Albumin/Globulin Ratio 1.3 (1.0-1.7) Lipase 179 U/L (73-393) Laboratory Tests 01/19/21 11:19 Laboratory Tests 01/19/21 11:19 Vital Signs: Vital Signs Date Time Temp Pulse Resp B/P (MAP) Pulse Ox O2 Delivery O2 Flow Rate FiO2 01/19/21 11:17 98 20 90 Ventilator 01/19/21 10:25 97.5 4.5 97.5 EKG: EKG: EKG was done at 912, heart rate 80 bpm, sinus tachycardia, no ST segment elevation Radiology/Procedures: Radiology/Procedures: [][place] [id number] IMAGING REPORT Signed PATIENT: WILLIAN NAYLORCOUNT: [id number] : 1935 LOCATION: ER AGE: 85 SEX: F EXAM STATUS: REG ER ORD. PHYSICIAN: KASSI CANALES DO REASON: syncope,ALSO CT TRAUMA [id number] NOT READY INTUBATING PT PROCEDURE: PORTABLE CHEST 1V EXAM: Chest, single view. HISTORY: Trauma. COMPARISON: 06/11/2020 FINDINGS: A frontal view of the chest is obtained. There is stable opacification of the lateral left thorax due to multiple chronic rib fractures and associated pleural thickening or pleural parenchymal scarring. No convincing acute fracture is seen. The heart is normal in size. There is an endotracheal tube within the mid to distal trachea. There is linear scarring within the right midlung. IMPRESSION: 1. Multiple chronic appearing left rib fractures with associated pleural thickening or pleural parenchymal scarring. 2. Endotracheal tube in expected position. Electronically signed by: Afia Dwyer MD (01/19/2021 11:33 AM) [id number] DICTATED and SIGNED BY: AFIA DWYER MD DATE: 01/19/21 [id number] [address] [address] IMAGING REPORT Signed PATIENT: WILLIAN NAYLOR JACCOUNT: [id number] : 1935 LOCATION: ER AGE: 85 SEX: F EXAM STATUS: REG ER ORD. PHYSICIAN: KASSI CANALES DO REASON: fell, pelvic pain PROCEDURE: PELVIS EXAM: Pelvis, single view. HISTORY: Fall. Pain. COMPARISON: None. FINDINGS: A frontal view of the pelvis is obtained. A displaced fracture is seen. There is lumbar scoliosis and multilevel degenerative change throughout the visualized lumbar spine. There is a large amount gas and stool within the colon. There is also a distended air-filled viscus within the upper abdomen which is partially excluded from the [id number] and likely the stomach. There is mild bilateral hip osteoarthritis. IMPRESSION: 1. No convincing acute osseous finding. 2. Large amount gas and stool within the colon and suspected distended air- filled stomach. Electronically signed by: Afia Dwyer MD (01/19/2021 11:34 AM) [id number] DICTATED and SIGNED BY: AFIA DWYER MD DATE: 01/19/21 [id number] Intubation procedure: Indication: Respiratory failure/ams Consent: Unable to give consent due to emergent nature. Medications Used: see nursing note Procedure: The patient was placed in the appropriate position. Intubation was performed [CORD VISUALIZATION METHOD by glidescope] [ET TUBE # 7.5 was used, endotracheal tube. [ET SECUREd at 23 at lip]. Initial confirmation of placement included bilateral breath sounds, tube fogging, adequate chest rise, adequate pulse oximetry reading. A chest x-ray to verify correct placement of the tube showed appropriate tube position. The patient tolerated the procedure well. Complications: none. Course & Med Decision Making: Course & Med Decision Making Pertinent Labs and Imaging studies reviewed. (See chart for details) Patient was confused, agitated, complaining of neck pain. She was not able follow command, attempted to pull off medical equipment, two RNs and a tech was not able to hold her down. Patient was given two doses of ativan 1 mg IM but she was not still calm down, could not get a reading on her blood pressure or her pulse despite of 5 L of oxygen applied by ND. Patient was intubated. After intubation, there was no pulse detected. CODE BLUE was activated. Patient was rescussictated per ACLS protocol. ROSC was achieved once but lost briefly. This physician discussed with patient's daughter, she said patient would not want to be resuscitated. She wanted us to stop the resuscitation. NO PULSE, PATIENT WAS IN PEA. Patient was pronounced by this physician at 11:42, discussed with Patient's PCP who agreed to sign the d eath certificate. Dragon Disclaimer: Dragon Disclaimer: This electronic medical record was generated, in whole or in part, using a voice recognition dictation system. Departure Departure Impression: Primary Impression: Syncope and collapse Additional Impressions: AMS (altered mental status) Cardiac arrest Disposition: 20 (at 11:42 am) Condition: Referrals: JEANNETTE VELASCO MD (PCP) KASSI CANALES DO January 19, 2021 12:18
[2021-01-19] MEDS ORDERED: ETOMIDATE 20 MG/10 ML VIAL. IV ONE ×2 (12:23→13:15)
[2021-01-19] MEDS ORDERED: SUCCINYLCHOLINE 200 MG/10 ML VIAL. ONE (12:24)
[2021-01-19 12:47] LABS: % BANDS 6 % (0-9); % BASOS 2 % (0-3); % EOS 10 % (0-5); % LYMPHS 40 % (24-48); % METAS 1 % (0-0); % MONOS 5 % (0-10); % MYELOS 1 % (0-0); % SEGS 35 % (35-66); PLT ESTIMATE ADEQUATE (ADEQUATE)
[2021-01-19] MEDS ORDERED: SUCCINYLCHOLINE 200 MG/10 ML VIAL. IV ONE (13:15)
--- NOTE | 2021-01-19 16:22 | EKG ---
[facility] [address] [place] [address] Test Date: 2021-01-19 Test Time: 11:20:18 Pat Name: WILLIAN NAYLOR Department: Room: Gender: F Poison Information Specialist: : 1935 Requested By: KASSI CANALES Order Number: [id number] Reading MD: Measurements Intervals [place] Rate: 104 P: -116 [place]: 120 QRS: 0 QRSD: 68 T: 71 QT: 304 QTc: 405 Interpretive Statements SINUS TACHYCARDIA LEFTWARD AXIS ST & T ABNORMALITY, CONSIDER HIGH LATERAL ISCHEMIA OR LEFT VENTRICULAR STRAIN ABNORMAL ECG RI6.01 No previous ECG available for comparison
== END 2021-01-19 11:42 ==
LOC: ER 10:18
DX: I46.9 Cardiac arrest, cause unspecified (principal); R41.82 Altered mental status, unspecified; R55 Syncope and collapse
CPT/HCPCS: 31500; 36415; 51702; 71045; 72170; 80053; 83690; 83735; 83880; 84484; 85007; 85025; 93005; 96372; 96374; 99285; J0171; J0330; J2060; J3490; J7030; 94002; 99291-25